=== PATIENT | female | born 2000 | race Caucasian/White ===

== ENCOUNTER 2023-01-28 18:17 | Emergency (ER) | payer OTHER ==
[2023-01-28 18:25] VITALS: BP 112/79; PULSE 88; RESP 16; TEMP 97.8; BMI 24.5
== END 2023-01-28 19:30 | disposition home or self-care (01) ==
LOC: JERFT 18:17
DX: M79.671 Pain in right foot (principal); R22.41 Localized swelling, mass and lump, right lower limb; S92.351A Displaced fracture of fifth metatarsal bone, right foot, initial encounter for closed fracture; W10.8XXA Fall (on) (from) other stairs and steps, initial encounter
CPT/HCPCS: 73610-TC-RT-FY; 73630-TC-RT-FY; 99283-25